=== PATIENT | male | born 1960 | race Caucasian/White ===

== ENCOUNTER 2018-12-10 10:59 | Emergency (ER) | payer MEDICARE ==
--- NOTE | 2018-12-10 11:44 | ER Document Report ---
ED Medical Screen (RME) - General Chief Complaint: Blood Pressure Problem Stated Complaint: BLOOD PRESSURE PROBLEMS Time Seen by Provider: 12/10/18 11:27 Notes: 58-year-old male with hypertension, hyperlipidemia, [id number] diabetes mellitus not being treated, CVA in 2004 who is a 1 pack/day smoker and a 12 pack/day beer drinker presents to the emergency department with chief complaint of "brain tingling". He states that he has dizziness/lightheadedness, headache, nausea, vomiting and blurred vision. He checks his blood pressure during these episodes and notes that his blood pressure is elevated. This morning when he had these symptoms his systolic was 209 and then repeat it was 201 at home BP monitor. On arrival here patient's systolic was 156. He was not having symptoms at the time of arrival. He denies any recent illness, denies any fevers or chills, denies any chest pain or acute shortness of breath, denies any abdominal pain, denies any numbness or tingling of his face. Patient does have residual deficits on the left side from his previous CVA. I have greeted and performed a rapid initial assessment of this patient. A comprehensive ED assessment and evaluation of the patient, analysis of test results and completion of medical decision making process will be conducted by an additional ED providers. TRAVEL OUTSIDE OF THE [place] IN LAST 30 DAYS: No - Related Data Allergies/Adverse Reactions: cephalexin [From Keflex] Allergy (Verified 12/10/18 11:18) Penicillins Allergy (Verified 12/10/18 11:01) Past Medical History - Social History Chew tobacco use (# tins/day): No Frequency of alcohol use: Heavy Drug Abuse: None - Past Medical History Cardiac Medical History: Reports: Hx Hypercholesterolemia, Hx Hypertension Endocrine Medical History: Reports: Hx Diabetes Mellitus Type 2 Renal/ Medical History: Denies: Hx Peritoneal Dialysis Physical Exam - Vital signs Vitals: Temp Pulse Resp BP Pulse Ox 98.2 F 70 18 156/70 H 93 12/10/18 11:07 12/10/18 11:07 12/10/18 11:07 12/10/18 11:07 12/10/18 11:07 - Notes Notes: PHYSICAL EXAMINATION: Reviewed vital signs and charting by RN GENERAL: Alert, interacts well. No acute distress. HEAD: Normocephalic, atraumatic. EYES: Pupils equal and round. Extraocular movements intact. ENT: Oral mucosa moist, tongue midline. NECK: Full range of motion. Trachea midline. LUNGS: Clear to auscultation bilaterally, no wheezes, rales, or rhonchi. No r espiratory distress. HEART: Regular rate and rhythm. No murmur ABDOMEN: soft, non-tender. No distention. Bowel sounds present EXTREMITIES: Moves all 4 extremities spontaneously. Residual left-sided deficit with very mild left facial droop, mildly contracted left upper extremity and slight weakness in his left leg. PSYCH: Normal affect, normal mood. SKIN: Warm, dry, normal turgor. No rashes or lesions noted. Course - Vital Signs Vital signs: Temp Pulse Resp BP Pulse Ox 98.2 F 70 18 156/70 H 93 12/10/18 11:07 12/10/18 11:07 12/10/18 11:07 12/10/18 11:07 12/10/18 11:07
--- NOTE | 2018-12-10 12:13 | RADIOLOGY REPORT (SQ) ---
EXAM DESCRIPTION: CHEST 2 VIEWS COMPLETED DATE/TIME: 12/10/2018 11:51 am REASON FOR STUDY: SOB/MORAN COMPARISON: None. EXAM PARAMETERS: NUMBER OF VIEWS: two views TECHNIQUE: Digital Frontal and Lateral radiographic views of the chest acquired. RADIATION DOSE: NA LIMITATIONS: none FINDINGS: LUNGS AND PLEURA: No acute infiltrates or effusions. MEDIASTINUM AND HILAR STRUCTURES: No masses or contour abnormalities. HEART AND VASCULAR STRUCTURES: Normal heart and pulmonary vasculature. BONES: Dorsal spondylosis seen. HARDWARE: None in the chest. OTHER: No other significant finding. IMPRESSION: NO ACUTE DISEASE. TECHNICAL DOCUMENTATION: JOB ID: [id number] [id number] [employer]- All Rights Reserved Reading location - IP/workstation name: [email or web address]
[2018-12-10 12:16] LABS: ABSOLUTE BASOPHILS # (AUTO) 0.1 10^3/uL (0.0-0.2); ABSOLUTE EOSINOPHILS # (AUTO) 0.1 10^3/uL (0.0-0.6); ABSOLUTE MONOCYTES (AUTO) 0.5 10^3/uL (0.1-1.4); ABSOLUTE NEUT (AUTO) 7.3 10^3/uL (1.7-8.2); BASOPHILS % (AUTO) 0.9 % (0-2); EOSINOPHILS % (AUTO) 0.8 % (0-6); HEMATOCRIT 48.8 % (37.9-51.0); HEMOGLOBIN 16.3 g/dL (13.5-17.0); LYMPHOCYTES % (AUTO) 10.8 % (13-45); MEAN CORPUSCULAR HEMOGLOBIN 29.9 pg (27.0-33.4); MEAN CORPUSCULAR HGB CONC 33.5 g/dL (32.0-36.0); MEAN CORPUSCULAR VOLUME 89 fl (80-97); MONOCYTES % (AUTO) 5.1 % (3-13); PLATELET COUNT 319 10^3/uL (150-450); RED BLOOD COUNT 5.46 10^6/uL (4.35-5.55); RED CELL DISTRIBUTION WIDTH 13.5 % (11.5-14.0); SEGMENTED NEUTROPHILS % (AUTO) 82.4 % (42-78); TOTAL CELLS COUNTED % (AUTO) 100 %; WHITE BLOOD COUNT 8.9 10^3/uL (4.0-10.5)
[2018-12-10 12:26] LABS: ALANINE AMINOTRANSFERASE 21 U/L (21-72); ALBUMIN 2.9 g/dL (3.5-5.0); ALKALINE PHOSPHATASE 50 U/L (38-126); ANION GAP 5 (5-19); ASPARTATE AMINO TRANSFERASE 25 U/L (17-59); BILIRUBIN,DIRECT 0.3 mg/dL (0.0-0.4); BILIRUBIN,TOTAL 0.4 mg/dL (0.2-1.3); BLOOD UREA NITROGEN 11 mg/dL (7-20); CALCIUM 9.2 mg/dL (8.4-10.2); CARBON DIOXIDE 30 mmol/L (22-30); CHLORIDE 99 mmol/L (98-107); GLUCOSE 132 mg/dL (75-110); POTASSIUM 4.2 mmol/L (3.6-5.0); SODIUM 133.7 mmol/L (137-145); TOTAL PROTEIN 5.3 g/dL (6.3-8.2)
[2018-12-10 15:40] VITALS: BP 157/82
--- NOTE | 2018-12-10 18:12 | EKG REPORT ---
SEVERITY:- NORMAL ECG - SINUS RHYTHM : Confirmed by: Link Mccall MD 10-Dec-2018 18:12:14
--- NOTE | 2018-12-10 19:53 | ER Document Report ---
Entered by HANK HEDRICK SCRIBE 12/10/18 [id number] Acting as scribe for:KOURTNEY CARRANZA DO ED General - General Chief Complaint: Blood Pressure Problem Stated Complaint: BLOOD PRESSURE PROBLEMS Time Seen by Provider: 12/10/18 11:27 Primary Care Provider: SOLOMON HOPPER MD [NO LOCAL MD] - Follow up as needed MEÑO LAZO MD [ACTIVE STAFF] - Follow up as needed ERNESTINE MCARTHUR MD [ACTIVE STAFF] - Follow up as needed DANA MCCALL MD [EMERITUS] - Follow up as needed Mode of Arrival: Ambulatory Information source: Patient Notes: Patient is a 58 year old male with HTN, HLD, COPD, diet controlled diabetes with a history of a CVA (2004,subsequent left sided weakness) presents to the emergency department complaining of a tingling sensation onset 1.5 year ago, worsening last week. Patient states the sensation starts at the top of his head and radiates into his abdomen and further describes it as intermittent, lasting 15-20 minutes, every 30 minutes. He states the sensations has become more frequent and also complains of blurry vision and elevated blood pressure during the tingling episodes. He further complains of nausea, vomiting and dizziness. He denies any chest pain, trouble breathing, syncopal episodes, any changes in diet or medications or history of stress test or cardiac catheterizations. Patient follows up with providers in [place], [place] and has had this previously worked up about a year ago however has worsened so today he is concerned. TRAVEL OUTSIDE OF THE [place] IN LAST 30 DAYS: No - Related Data Allergies/Adverse Reactions: cephalexin [From Keflex] Allergy (Verified 12/10/18 11:18) Penicillins Allergy (Verified 12/10/18 11:01) Past Medical History - General Information source: Patient - Social History Smoking Status: Current Every Day Smoker Chew tobacco use (# tins/day): No Frequency of alcohol use: Heavy - 8-12 beers daily Drug Abuse: None Family History: Reviewed & Not Pertinent Patient has suicidal ideation: No Patient has homicidal ideation: No - Past Medical History Cardiac Medical History: Reports: Hx Hypercholesterolemia, Hx Hypertension Endocrine Medical History: Reports: Hx Diabetes Mellitus Type 2 Review of Systems - Review of Systems Constitutional: No symptoms reported EENT: See HPI, Blurred vision Cardiovascular: See HPI, Dizziness Respiratory: No symptoms reported Gastrointestinal: See HPI, Nausea, Vomiting Male Genitourinary: No symptoms reported Musculoskeletal: No symptoms reported Skin: No symptoms reported Hematologic/Lymphatic: No symptoms reported Neurological/Psychological: See HPI, Tingling -: Yes All other systems reviewed and negative Physical Exam - Vital signs Vitals: Temp Pulse Resp BP Pulse Ox 98.2 F 70 18 156/70 H 93 12/10/18 11:07 12/10/18 11:07 12/10/18 11:07 12/10/18 11:07 12/10/18 11:07 - Notes Notes: GENERAL: Alert, interacts well. No acute distress. HEAD: Normocephalic, atraumatic. Slight left sided facial droop and weakness with puffing up cheeks, no tongue deviation. EYES: Pupils equal, round, and reactive to light. Extraocular movements intact. ENT: Oral mucosa moist, tongue midline. NECK: Full range of motion. Supple. Trachea midline. LUNGS: Clear to auscultation bilaterally, no wheezes, rales, or rhonchi. No respiratory distress. HEART: Regular rate and rhythm. No murmurs, gallops, or rubs. ABDOMEN: Soft, non-tender. Non-distended. Bowel sounds present in all 4 quadra nts. No guarding, rigidity, or rebound. EXTREMITIES: Moves all 4 extremities spontaneously. Contracture of the LUE, limited ROM, flexed at the elbow, mild edema. Clubbing of the bilateral hands, L>R. Trace pitting edema to the RLE. 2+ pitting edema to the LLE. NEUROLOGICAL: Alert and oriented x3. Moderate dysarthria which patient states is baseline. 4/5 muscle strength of the LLE and LUE. 5/5 muscle strength of the RUE and RLE. Finger to nose testing intact of RUE. Normal sensations. All of these findings are baseline. PSYCH: Normal affect, normal mood. SKIN: Warm, dry. Superficial abrasion to the left knee. Course - Re-evaluation Re-evalutation: 12/10/18 15:02 CBC unremarkable, CMP shows very mild hyponatremia with a sodium 133.7 likely related to the 8 beers a day that he drinks. Patient was counseled to decrease to no more than 4 beers a day and have sodium rechecked within the next 2 weeks. This is not low enough to be causing his symptoms. Glucose mildly elevated at 132, he is a known diabetic who is not fasting, troponin negative, total protein and albumin are both somewhat low. Chest x-ray reveals no acute process. EKG is nonischemic. Discussed with the patient that he is neurologically unchanged from his baseline and there is no sign of a new stroke. The symptoms that he is describing that come on every 3 to 15 minutes multiple times a day and is been going on for at least the past year are not concerning for a new stroke syndrome or a TIA or impending TIA. Discussed with patient my 2 biggest concerns are possible arrhythmia leading him to have these full body paresthesias or possible seizure syndrome actually that may be causing the symptoms. I recommend that the patient follow-up with cardiology as an outpatient for a Holter monitor and if this is negative then follow-up with neurology for further investigation of possible seizures. Patient is agreeable to this plan. Will be discharged to home. 12/10/18 15:03 Patient blood pressure is also relatively well-controlled here. Discussed with patient that though he had some high blood pressure at the time I do not see anything to indicate that this is hypertensive urgency that would need to be admitted. Patient is instructed to take his blood pressure once in the morning and once in the evening after resting for at least 15 minutes and write this down and presented to his primary care physician for further adjustment of his blood pressure medications as needed. - Vital Signs Vital signs: Temp Pulse Resp BP Pulse Ox 98.8 F 72 20 157/82 H 96 12/10/18 15:29 12/10/18 15:29 12/10/18 15:29 12/10/18 15:29 12/10/18 15:29 - Laboratory Result Diagrams: 12/10/18 11:55 12/10/18 11:55 Laboratory results interpreted by me: 12/10/18 12/10/18 11:55 11:55 Seg Neutrophils % 82.4 H Lymphocytes % 10.8 L Sodium 133.7 L Glucose 132 H Total Protein 5.3 L Albumin 2.9 L - EKG Interpretation by Me Additional EKG results interpreted by me: 12/10/18 15:03 EKG shows sinus rhythm at a rate of 64, normal axis, interventricular conduction delay with QRS duration of 102, no ST segment elevations or depressions, T wave flattening noted in lead III per my interpretation. Discharge - Discharge Clinical Impression: Paresthesias Hypertension Qualifiers: Hypertension type: unspecified Qualified Code(s): I10 - Essential (primary) hypertension Condition: Stable Disposition: HOME, SELF-CARE Additional Instructions: Today did not find any specific cause for the tingling sensations that you have been having. I am concerned that it could either be related to an abnormal heart rhythm or possibly an unusual presentation of partial seizures. I would like you to follow-up with a senior internet sales consultant within the next week such as Dr. Mcarthur, Dr. Lazo or Dr. Mccall to have a Holter monitor placed and I would also like you to follow-up with a neurologist such as Dr. Hopper within the next 1 to 2 months to discuss the possibility of an unusual presentation of seizures causing her tingling. Should you pass out during 1 of these episodes I do want you to return to the emergency department immediately and also please return for any new or concerning symptoms including chest pain. Please check your blood pressure once in the morning and once in the evening and write it down. Keep a record of these blood pressures and show them to your primary care physician as they may need to slightly adjust her dosages. Unless you are having symptoms such as headache, weakness, chest pain, trouble breathi ng you do not need to come to the emergency department even if your blood pressure is temporarily in the 200s systolic. If you are having the aforementioned symptoms you should come to the emergency department even if your blood pressure is normal. Referrals: SOLOMON HOPPER MD [NO LOCAL MD] - Follow up as needed DANA MCCALL MD [EMERITUS] - Follow up as needed ERNESTINE MCARTHUR MD [ACTIVE STAFF] - Follow up as needed MEÑO LAZO MD [ACTIVE STAFF] - Follow up as needed I personally performed the services described in the documentation, reviewed and edited the documentation which was dictated to the scribe in my presence, and it accurately records my words and actions.
== END 2018-12-10 15:30 | disposition home or self-care (01) ==
LOC: ER 10:59
DX: R20.2 Paresthesia of skin (principal); I10 Essential (primary) hypertension; H53.8 Other visual disturbances; R11.2 Nausea with vomiting, unspecified; R42 Dizziness and giddiness; E78.5 Hyperlipidemia, unspecified; J44.9 Chronic obstructive pulmonary disease, unspecified; E11.9 Type 2 diabetes mellitus without complications; Z86.73 Personal history of transient ischemic attack (TIA), and cerebral infarction without residual deficits; F17.200 Nicotine dependence, unspecified, uncomplicated
CPT/HCPCS: 36415; 71046; 80053; 84484; 85025; 93005; 93010; 99284